=== PATIENT | male | born 1980 | race African-American/Black ===

== ENCOUNTER 2024-02-06 04:28 | Emergency (ER) | payer BC ==
[~2024-02-06] VITALS: Ht 190.5 cm; Wt 159.1 kg
[2024-02-06 04:36] VITALS: BP 181/79; PULSE 96; TEMP 98.4
[2024-02-06] MEDS ORDERED: Ketorolac 15 MG/ML VIAL IM ONE (05:00)
[2024-02-06] MEDS ORDERED: Home HYDROcodone/Acetaminophen 5/325 MG #4 TABS/PACK PO ONE (05:15)
== END 2024-02-06 05:27 | disposition home or self-care (01) ==
LOC: COL.ER 04:28
DX: M76.61 Achilles tendinitis, right leg (principal)
CPT/HCPCS: J1885